=== PATIENT | male | born 2000 | race Caucasian/White ===

== ENCOUNTER 2020-11-11 23:26 | Emergency (ER) | payer OTHER | END 2020-11-12 01:03 | disposition home or self-care (01) | LOC: ERS 23:26 | DX: M25.571 Pain in right ankle and joints of right foot (principal) ==

== ENCOUNTER 2021-12-09 12:30 | Emergency (ER) | payer OTHER ==
[2021-12-09] MEDS ORDERED: Dexamethasone 10 MG/ML VIAL ONE (12:57)
== END 2021-12-09 13:55 | disposition home or self-care (01) ==
LOC: ERS 12:30
DX: J11.1 Influenza due to unidentified influenza virus with other respiratory manifestations (principal)
CPT/HCPCS: 71045; 93005; 96372; J1100

== ENCOUNTER 2022-03-31 02:06 | Emergency (ER) | payer OTHER, SELFPAY ==
[2022-03-31] MEDS ORDERED: Lidocaine 1% PF 5 ML VIAL ONE ×2 (03:24)
== END 2022-03-31 03:50 | disposition home or self-care (01) ==
LOC: ERS 02:06
DX: S61.411A Laceration without foreign body of right hand, initial encounter (principal); W22.8XXA Striking against or struck by other objects, initial encounter
CPT/HCPCS: 12002